=== PATIENT | male | born 1990 | race Caucasian/White ===

== ENCOUNTER 2021-06-29 00:06 | Inpatient (IN) | payer MEDICAID ==
[~2021-06-29] VITALS: Ht 180.3 cm; Wt 69.9 kg
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
[2021-06-29] MEDS ORDERED: HYDROCODONE/APAP 10/325MG TABLET ONE (01:27)
[2021-06-29] MEDS ORDERED: IBUPROFEN 600 MG TABLET ONE (01:28)
[2021-06-29] MEDS ORDERED: IBUPROFEN 600 MG TABLET PO ONE (01:30)
[2021-06-29] MEDS ORDERED: HYDROCODONE/APAP 10/325MG TABLET PO ONE (01:30)
--- NOTE | 2021-06-29 03:17 | NUR ---
AWAITING LAB FOR BLOOD DRAW.
[2021-06-29 03:49] LABS: BASOPHILS # (AUTO) 0.1 K/uL (0.0-0.2); BASOPHILS % (AUTO) 0.3 % (0.0-2.0); EOSINOPHILS % (AUTO) 0.4 % (0.0-6.0); HEMATOCRIT 41 % (39-51); HEMOGLOBIN 13.9 g/dL (13.5-17.5); LYMPHOCYTES # (AUTO) 2.4 K/uL (0.8-4.8); LYMPHOCYTES % (AUTO) 12.7 % (20.0-44.0); MEAN CORPUSCULAR HGB CONC 34 g/dl (31.0-36.0); MEAN CORPUSCULAR VOLUME 85 fL (80-96); MONOCYTES # (AUTO) 1.7 K/uL (0.1-1.30); MONOCYTES % (AUTO) 9.3 % (2.0-12.0); NEUTROPHILS # (AUTO) 14.4 K/uL (1.8-8.9); NEUTROPHILS % (AUTO) 77.3 % (43.0-81.0); PLATELET COUNT (AUTO) 279 K/uL (150-450); RED BLOOD CELL COUNT(AUTO) 4.81 MIL/uL (4.5-6.0); WHITE BLOOD COUNT (AUTO) 18.7 K/uL (4.3-11.0)
[2021-06-29 03:57] LABS: CARBON DIOXIDE 27 mmol/L (21-32); CHLORIDE 100 mmol/L (98-107); CREATININE 0.8 mg/dL (0.6-1.3); GLUCOSE 95 mg/dL (74-106); POTASSIUM 3.8 mmol/L (3.5-5.1); SODIUM SERUM 135 mmol/L (136-145); UREA NITROGEN, BLOOD 18 mg/dL (7-18)
[2021-06-29 04:17] LABS: ALCOHOL, BLOOD < 3 mg/dL (0-0)
[2021-06-29] MEDS ORDERED: CEFTRIAXONE 1 G in IV D5W 50 ML IV ONE (04:30)
[2021-06-29] MEDS ORDERED: AZITHROMYCIN 250 MG TABLET PO ONE (04:30)
[2021-06-29] MEDS ORDERED: PIPERACILLIN /TAZOBACTAM 3.375 G VIAL IV ONE (04:47)
[2021-06-29] MEDS ORDERED: AZITHROMYCIN 250 MG TABLET ONE (04:48)
[2021-06-29 04:54] LABS: ALBUMIN 4.2 g/dL (3.4-5.0); BILIRUBIN,DIRECT 0.2 mg/dL (0.0-0.2); BILIRUBIN,TOTAL 0.7 mg/dL (0.2-1.0)
[2021-06-29] MEDS ORDERED: MAGNESIUM HYDROXIDE 30 ML UDC PO PRN (05:30)
[2021-06-29] MEDS ORDERED: Z GUARD REMEDY 2 OZ OINT TP PRN (05:30)
[2021-06-29] MEDS ORDERED: MAG HYDROX/AL HYDROX/SIMETH 30 ML UDC PO PRN (05:30)
[2021-06-29] MEDS ORDERED: TEMAZEPAM 15 MG CAPSULE PO PRN (05:30)
[2021-06-29] MEDS ORDERED: ONDANSETRON HCL/PF 4 MG/2 ML VIAL IVP PRN (05:30)
[2021-06-29] MEDS ORDERED: ACETAMINOPHEN 325 MG TABLET PO PRN (05:30)
--- NOTE | 2021-06-29 05:47 | NUR ---
RESTING COMFORTABLY. VSS.
--- NOTE | 2021-06-29 07:19 | NUR ---
TELE 103
--- NOTE | 2021-06-29 08:50 | NUR ---
REPORT GIVEN TO KELLY SMITH FOR GARO.
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
[2021-06-29] MEDS: HYDROCODONE/APAP 5/325MG TABLET PO PRN ×3 (10:26→20:12)
[2021-06-29] MEDS: HYDROCODONE/APAP 10/325MG TABLET PO PRN ×2 (12:56→18:26)
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
--- NOTE | 2021-06-29 18:30 | NUR ---
RN CLOSING NOTES PT CAME FROM ER. DIAGNOSIS OF COMMUNITY ACQUIRED PNEUMONIA. PT IS AOX3. ROOM AIR. NO SOB OR DISTRESS NOTED. PT COMPLAINED OF PAIN 6/10 RIGHT RIB. NARCO 5 AND 10 GIVEN Q4H. PT IS IN BED, PT HAS SMALL ABRASIONS ON RIGHT LEG AND ARMS. PICTURES TAKEN AND DOCUMENTED. PCR SENT TO LAB TODAY WAITING FOR RESULTS. SAFETY MEASURES IN PLACE. BED IN LOW LOCKED POSITION . BED HEAD ELEVATED @30 DEGREE. CALL LIGHT WITHIN REACH. WILL ENDORSE TO CHARGING BOARD OPERATOR
[2021-06-29 19:19] LABS: FERRITIN 136 ng/mL (8-388)
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
[2021-06-29 20:00] VITALS: BP 129/77
--- NOTE | 2021-06-29 20:30 | NUR ---
RN NOTE PRN dose of [place] 5/325 given for pain level of 8/10 in right rib/chest. Awake and VSS. No other distress noted at this time.
--- NOTE | 2021-06-29 23:29 | NUR ---
RN NOTE PRN dose of Restoril given for insomnia per pt. request and clinical assessment. Very anxious and restless. VSS.
[2021-06-29] MEDS: IV NS 0.9% 1,000 ML IV PRN (23:51)
[2021-06-30] MEDS: HYDROCODONE/APAP 10/325MG TABLET PO PRN (03:02)
[2021-06-30 04:00] VITALS: BP 138/82
[2021-06-30] MEDS: CEFTRIAXONE 1 G in IV D5W 50 ML IV SCH (04:56)
[2021-06-30] MEDS: AZITHROMYCIN 500 MG in IV D5W 250 ML IV SCH (05:47)
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
[2021-06-30 07:05] LABS: BASOPHILS % (AUTO) 0.2 % (0.0-2.0); EOSINOPHILS % (AUTO) 0.5 % (0.0-6.0); HEMATOCRIT 39 % (39-51); HEMOGLOBIN 13.2 g/dL (13.5-17.5); LYMPHOCYTES # (AUTO) 1.1 K/uL (0.8-4.8); MEAN CORPUSCULAR HGB CONC 34 g/dl (31.0-36.0); MEAN CORPUSCULAR VOLUME 86 fL (80-96); MONOCYTES # (AUTO) 1.6 K/uL (0.1-1.30); MONOCYTES % (AUTO) 7.4 % (2.0-12.0); NEUTROPHILS # (AUTO) 19.2 K/uL (1.8-8.9); NEUTROPHILS % (AUTO) 86.9 % (43.0-81.0); PLATELET COUNT (AUTO) 254 K/uL (150-450); RED BLOOD CELL COUNT(AUTO) 4.52 MIL/uL (4.5-6.0); WHITE BLOOD COUNT (AUTO) 22.1 K/uL (4.3-11.0)
[2021-06-30 07:33] LABS: CALCIUM, SERUM 8.7 mg/dL (8.5-10.1); CREATININE 0.7 mg/dL (0.6-1.3); MAGNESIUM 2.1 mg/dL (1.8-2.4); PHOSPHORUS 2.8 mg/dL (2.5-4.9); POTASSIUM 3.6 mmol/L (3.5-5.1)
[2021-06-30] MEDS: PANTOPRAZOLE 40 MG TABLET.DR PO SCH (07:51)
[2021-06-30] MEDS: HYDROCODONE/APAP 5/325MG TABLET PO PRN ×2 (07:54→13:30)
[2021-06-30 08:22] VITALS: BP 143/79
--- NOTE | 2021-06-30 08:37 | NUR ---
NURSE OPENING NOTE. RECEIVE REPORT FROM KNITTING TEACHER NURSE. PATIENT IS STABLE. A/O X4. PATIENT RECEIVING NS IV FLUID AT 75ML/HR. WILL FOLLOW UP WITH MORNING LAB. L LOWER ARM MID LINE FLUSH BUT NO BLOOD RETURN. ALL SAFETY MEASURE IN PLACE. PROPER ISOLATION PRECAUTION IN PLACE. BED IN LOWEST POSITION WITH 3 SIDE RAIL UP. HOB ELEVATED. CALL LIGHT WITHIN REACH. WILL CONTINUE TO MONITOR.
[2021-06-30 12:29] VITALS: BP 118/73
--- NOTE | 2021-06-30 12:30 | NUR ---
seen and evaluatedby sharon resident care assistant,relayed and discussed pain meds .given to patient ,Profile Grinder Technician will review meds and place orders,will continue to monitor.
[2021-06-30] MEDS: DEXAMETHASONE SOD PHOSPHATE 10 MG/ML VIAL IV SCH (12:44)
[2021-06-30] MEDS ORDERED: MORPHINE SULFATE INJ 2 MG/ML DISP.SYRIN IV PRN (13:00)
[2021-06-30 13:33] LABS: ABG BASE EXCESS -0.3 mmol/L; ABG OXYGEN SATURATION 98.2 % (92.0-98.5); ABG PCO2 28.3 mmHg (35.0-45.0); ABG PH 7.502 (7.350-7.450); ABG PO2 99.2 mmHg (75.0-100.0); COHb 0.4 % (0.5-1.5); MetHb 0.3 % (0.0-1.5); O2Hb 97.5 % (94.0-97.0); SITE, ABG Left Radial
[2021-06-30] MEDS: IV NS 0.9% 1,000 ML IV PRN (13:53)
--- NOTE | 2021-06-30 14:12 | NUR ---
ABG RESULT IN AND RELAYED TO MD .NO NEW ORDERS.
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
[2021-06-30] MEDS ORDERED: LORAZEPAM 1 MG TABLET PO PRN (15:30)
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
[2021-06-30] MEDS: METHADONE HCL 10 MG TABLET PO PRN (19:59)
[2021-06-30 21:16] VITALS: BP 111/63
[2021-07-01 05:06] VITALS: BP 130/77
[2021-07-01] MEDS: CEFTRIAXONE 1 G in IV D5W 50 ML IV SCH (05:14)
[2021-07-01] MEDS: AZITHROMYCIN 500 MG in IV D5W 250 ML IV SCH (06:14)
[2021-07-01 06:24] LABS: BASOPHILS % (AUTO) 0.2 % (0.0-2.0); EOSINOPHILS % (AUTO) 0.5 % (0.0-6.0); HEMATOCRIT 40 % (39-51); HEMOGLOBIN 13.1 g/dL (13.5-17.5); LYMPHOCYTES # (AUTO) 1.6 K/uL (0.8-4.8); MEAN CORPUSCULAR HGB CONC 33 g/dl (31.0-36.0); MEAN CORPUSCULAR VOLUME 87 fL (80-96); MONOCYTES # (AUTO) 1.5 K/uL (0.1-1.30); MONOCYTES % (AUTO) 7.8 % (2.0-12.0); NEUTROPHILS # (AUTO) 16.5 K/uL (1.8-8.9); NEUTROPHILS % (AUTO) 83.5 % (43.0-81.0); PLATELET COUNT (AUTO) 288 K/uL (150-450); RED BLOOD CELL COUNT(AUTO) 4.58 MIL/uL (4.5-6.0); WHITE BLOOD COUNT (AUTO) 19.8 K/uL (4.3-11.0)
--- NOTE | 2021-07-01 06:56 | NUR ---
END OF SHIFT REPORT Patient is A/O x4. Ongoing IVF. Ambulated to the bathroom, voided. No BM this shift. On Abx. Afebrile. Right rib pain given Methadone with good respond, no IV Morphine administered in the last 15 hours. Will endorse to oncoming RN.
[2021-07-01 07:19] LABS: CALCIUM, SERUM 8.6 mg/dL (8.5-10.1); CREATININE 0.7 mg/dL (0.6-1.3); MAGNESIUM 2.2 mg/dL (1.8-2.4); PHOSPHORUS 2.5 mg/dL (2.5-4.9); POTASSIUM 3.8 mmol/L (3.5-5.1)
--- NOTE | 2021-07-01 07:22 | NUR ---
RN OPENING NOTE. RECEIVED PATIENT RESTING IN BED. PATIENT IS A/O X4. PATIENT IS BREATHING EVENLY AND NONLABORED ON 2L OF OXYGEN VIA NC. NO SIGNS OF DISTRESS NOTED. PATIENT DOES NOT COMPLAIN OF PAIN AT THIS TIME. PATIENT IS AMBULATORY WITH STABLE GAIT. ABLE TO USE RESTROOM. PATIENT HAS IV ACCESS TO RFA # 20 GAUGE RUNNING NORMAL SALINE @75ML/HR. SAFETY MEASURES ARE IN PLACE BED LOW LOCKED AND CALL LIGHT WITHIN REACH. WILL CONTINUE TO MONITOR
[2021-07-01] MEDS: PANTOPRAZOLE 40 MG TABLET.DR PO SCH (07:35)
[2021-07-01] MEDS: METHADONE HCL 10 MG TABLET PO PRN (08:12)
[2021-07-01] MEDS: DEXAMETHASONE SOD PHOSPHATE 10 MG/ML VIAL IV SCH (08:13)
--- NOTE | 2021-07-01 09:10 | NUR ---
RN AMA NOTE PATIENT IS ASKING TO LEAVE ADAMANTLY. PATIENT IS STATING HE FEELS BETTER AND DOES NOT NEED TO STAY. PATIENT WAS THREATENING TO RIP OUT THE IV SITE. EXPLAINED TO PATIENT THE RISK AND BENEFITS OF LEAVING. PATIENT VERBALIZED WANTING TO LEAVE. MD NOTIFIED. PATIENTS BELONGINGS ACCOUNTED FOR AND IV ACCESS REMOVED SAFELY CATHETER TIP INTACT, PRESSURE DRESSING APPLIED. ID BAND REMOVED, AMA FORM SIGNED AND PATIENT LEFT VIA AMBULATION.
== END 2021-07-01 09:24 | disposition home or self-care (01) | DRG 139 ==
LOC: ER 00:09 → TELE1 07:42 → MEDSG1 09:23
PROVIDERS: ADMIT Nurse Practitioner Acute Care; ATTEND Nurse Practitioner Acute Care
DX: J15.9 Unspecified bacterial pneumonia (principal); G93.41 Metabolic encephalopathy; E87.3 Alkalosis; D72.829 Elevated white blood cell count, unspecified; S20.219A Contusion of unspecified front wall of thorax, initial encounter; F11.13 Opioid abuse with withdrawal; R07.81 Pleurodynia; Z20.822 Contact with and (suspected) exposure to COVID-19; Z59.00 Homelessness unspecified; Z72.0 Tobacco use; Y09 Assault by unspecified means; Y93.9 Activity, unspecified; Y92.89 Other specified places as the place of occurrence of the external cause
CPT/HCPCS: 36415; 36600; 71100-TC; 71250-TC; 80048-TC; 80076-TC; 82728-TC; 82803-TC; 83605-TC; 83615-TC; 83735-TC; 84100-TC; 84484-TC; 85025-TC; 85378-TC; 86140-TC; 87040-TC; 87081-TC; C9803; G0378; G0480; J0456; J0696; J1100; J2270; J2543; J7030; J7060; U0003